=== PATIENT | male | born 1950 | race Caucasian/White ===

== ENCOUNTER 2019-03-12 08:30 | Outpatient (RCR) | payer MEDICARE, BC ==
[~2019-03-12 08:30] MED LIST: ASPIRIN E.C. 8181 MG PO; LIPITOR 80MG80 MG PO; LISINOPRIL20 MG PO; NORCO 325 MG-7.1 TAB PO; PERCOCET 325 MG1 TAB PO; PREDNISONE 5MG5 MG PO; VYTORIN 10 MG-11 TAB PO; VYTORIN 10 MG-41 TAB PO; ZESTRIL 20MG TA20 MG PO
== END 2019-05-15 10:05 | disposition home or self-care (01) ==
LOC: WSC 08:30
DX: M40.36 Flatback syndrome, lumbar region (principal)